=== PATIENT | male | born 1975 | race Hispanic/Latino ===

== ENCOUNTER 2017-09-12 09:13 | Emergency (ER) | payer MEDICAID ==
[2017-09-12] MEDS ORDERED: METHYLPREDNISOLONE SOD SUCC 125MG/2ML VIAL ONE (09:23)
[2017-09-12] MEDS ORDERED: IPRATROPIUM/ALBUTEROL SULFATE 3 ML SOLUTION IH ONE ×2 (09:26→09:34)
[2017-09-12] MEDS ORDERED: ALBUTEROL SULFATE 0.083% 2.5 MG/3 ML INH IH ONE (09:48)
== END 2017-09-12 10:25 | disposition home or self-care (01) ==
LOC: EDH 09:13
DX: J45.41 Moderate persistent asthma with (acute) exacerbation (principal); Z72.0 Tobacco use
CPT/HCPCS: 94640 ×3; 96374; 99285; J2930

== ENCOUNTER 2017-10-29 17:04 | Emergency (ER) | payer MEDICAID ==
[2017-10-29] MEDS ORDERED: IPRATROPIUM/ALBUTEROL SULFATE 3 ML SOLUTION IH ONE (18:10)
[2017-10-29] MEDS ORDERED: DEXAMETHASONE SOD PHOSPHATE 10MG/ML 1ML VIAL ONE (18:15)
== END 2017-10-29 18:27 | disposition home or self-care (01) ==
LOC: EDH 17:04
DX: J45.31 Mild persistent asthma with (acute) exacerbation (principal); Z72.0 Tobacco use
CPT/HCPCS: 94640; 96372; 99283; J1100

== ENCOUNTER 2018-04-14 19:33 | Emergency (ER) | payer MEDICAID ==
[2018-04-14] MEDS ORDERED: IPRATROPIUM/ALBUTEROL SULFATE 3 ML SOLUTION IH ONE (19:46)
[2018-04-14] MEDS ORDERED: METHYLPREDNISOLONE SOD SUCC 125MG/2ML VIAL ONE (19:54)
[2018-04-14] MEDS ORDERED: MAGNESIUM 2GM PREMIX 50ML 50 ML IV ONE (19:54)
[2018-04-14 20:03] LABS: BASOPHILS % (AUTO) 1.2 % (0.0-5.0); EOSINOPHILS % (AUTO) 20.6 % (0.0-8.0); HEMATOCRIT 49.3 % (42-54); MEAN CORPUSCULAR HEMOGLOBIN 32.5 pg (27.0-33.0); MEAN CORPUSCULAR HGB CONC 34.5 g/dL (32.0-36.0); MEAN CORPUSCULAR VOLUME 94.1 fL (79-99); MONOCYTES % (AUTO) 5.3 % (3.0-13.0); NEUTROPHILS % (AUTO) 37.9 % (40.0-77.0); PLATELET COUNT (AUTO) 342 K/uL (130-400); RED BLOOD CELL COUNT(AUTO) 5.24 MIL/uL (4.50-6.20); RED CELL DISTRIBUTION WIDTH 13.4 % (11.0-15.5); WHITE BLOOD COUNT (AUTO) 9.6 K/uL (4.8-10.8)
[2018-04-14 20:37] LABS: CREATININE 1.3 mg/dL (0.5-1.5); POTASSIUM 3.6 mmol/L (3.5-5.1)
[2018-04-14 20:42] LABS: ALBUMIN 3.6 g/dL (3.5-5.0); BILIRUBIN,TOTAL 0.2 mg/dL (0.2-1.0); TOTAL PROTEIN, SERUM 7.9 g/dL (6.0-8.3)
[2018-04-14 20:50] LABS: B-TYPE NATRIURETIC PEPTIDE 7 pg/mL (0-100)
[2018-04-14 21:38] LABS: BAND NEUTROPHILS % (MANUAL) 1 % (0-2); BASOPHILS % (MANUAL) 1 % (0-2); EOSINOPHILS % (MANUAL) 18 % (1-6); LYMPHOCYTES % (MANUAL) 34 % (22-44); MONOCYTES % (MANUAL) 2 % (2-9); REACTIVE LYMPHOCYTES 6 % (0-0); SEGMENTED NEUTROPHILS % 38 % (40-70)
[2018-04-14 21:39] LABS: MAN.DIFF COMMENT-IMPRESSION MANUAL DIFFERENTIAL
== END 2018-04-14 21:36 | disposition home or self-care (01) ==
LOC: EDH 19:33
DX: J45.901 Unspecified asthma with (acute) exacerbation (principal); Z98.890 Other specified postprocedural states; Z72.0 Tobacco use
CPT/HCPCS: 36415; 71045; 80053; 83880; 84484; 85025; 93005; 94640; 96365; 96366; 96375; 99291; J2930; J3475

== ENCOUNTER 2018-05-25 15:37 | Emergency (ER) | payer MEDICAID ==
[2018-05-25] MEDS ORDERED: IPRATROPIUM/ALBUTEROL SULFATE 3 ML SOLUTION IH ONE ×2 (15:42→16:14)
[2018-05-25] MEDS ORDERED: METHYLPREDNISOLONE SOD SUCC 125MG/2ML VIAL ONE (15:56)
[2018-05-25 16:03] LABS: BASOPHILS % (AUTO) 0.7 % (0.0-5.0); EOSINOPHILS % (AUTO) 14.2 % (0.0-8.0); HEMATOCRIT 48.3 % (42-54); LYMPHOCYTES % (AUTO) 15.8 % (21.0-51.0); MEAN CORPUSCULAR HEMOGLOBIN 31.5 pg (27.0-33.0); MEAN CORPUSCULAR HGB CONC 34.1 g/dL (32.0-36.0); MEAN CORPUSCULAR VOLUME 92.2 fL (79-99); MONOCYTES % (AUTO) 5.1 % (3.0-13.0); NEUTROPHILS % (AUTO) 64.2 % (40.0-77.0); PLATELET COUNT (AUTO) 277 K/uL (130-400); RED BLOOD CELL COUNT(AUTO) 5.24 MIL/uL (4.50-6.20); RED CELL DISTRIBUTION WIDTH 13.3 % (11.0-15.5); WHITE BLOOD COUNT (AUTO) 9.9 K/uL (4.8-10.8)
[2018-05-25 16:24] LABS: CREATININE 1.1 mg/dL (0.5-1.5); POTASSIUM 3.8 mmol/L (3.5-5.1)
[2018-05-25 16:29] LABS: ALBUMIN 3.5 g/dL (3.5-5.0); BILIRUBIN,TOTAL 0.7 mg/dL (0.2-1.0); TOTAL PROTEIN, SERUM 7.7 g/dL (6.0-8.3)
== END 2018-05-25 17:09 | disposition home or self-care (01) ==
LOC: EDH 15:37
DX: J45.901 Unspecified asthma with (acute) exacerbation (principal); Z79.899 Other long term (current) drug therapy; Z98.890 Other specified postprocedural states; Z72.0 Tobacco use
CPT/HCPCS: 36415; 71045; 80053; 85025; 94640 ×2; 96374; 99284; J2930

== ENCOUNTER 2018-06-05 11:26 | Emergency (ER) | payer MEDICAID ==
[2018-06-05] MEDS ORDERED: ACETAMINOPHEN-CODEINE 300/30MG TAB ONE (12:05)
== END 2018-06-05 12:10 | disposition home or self-care (01) ==
LOC: EDH 11:26
DX: L02.413 Cutaneous abscess of right upper limb (principal); J45.909 Unspecified asthma, uncomplicated; Z72.0 Tobacco use
CPT/HCPCS: 10060

== ENCOUNTER 2018-07-03 09:45 | Emergency (ER) | payer MEDICAID ==
[2018-07-03] MEDS ORDERED: METHYLPREDNISOLONE SOD SUCC 125MG/2ML VIAL ONE (10:30)
[2018-07-03] MEDS ORDERED: IPRATROPIUM/ALBUTEROL SULFATE 3 ML SOLUTION IH ONE (10:42)
== END 2018-07-03 11:36 | disposition home or self-care (01) ==
LOC: EDH 09:45
DX: J45.41 Moderate persistent asthma with (acute) exacerbation (principal); Z98.890 Other specified postprocedural states; Z72.0 Tobacco use
CPT/HCPCS: 71045; 87804 ×2; 94640; 96372; 99284; J2930

== ENCOUNTER 2018-07-28 07:36 | Emergency (ER) | payer MEDICAID ==
[~2018-07-28] VITALS: Ht 165.1 cm; Wt 81.7 kg
[2018-07-28] MEDS ORDERED: IPRATROPIUM/ALBUTEROL SULFATE 3 ML SOLUTION IH ONE ×2 (07:47→08:23)
[2018-07-28] MEDS ORDERED: METHYLPREDNISOLONE SOD SUCC 125MG/2ML VIAL ONE (07:55)
[2018-07-28] MEDS ORDERED: TERBUTALINE SULFATE VIAL 1MG/ML SQ SCH (08:00)
== END 2018-07-28 08:51 | disposition home or self-care (01) ==
LOC: EDH 07:36
DX: J45.901 Unspecified asthma with (acute) exacerbation (principal)
CPT/HCPCS: 71045; 94640 ×2; 96372 ×2; 99284; J2930; J3105

== ENCOUNTER 2018-09-04 19:32 | Emergency (ER) | payer MEDICAID ==
[2018-09-04 19:44] LABS: BASOPHILS % (AUTO) 1.2 % (0.0-5.0); EOSINOPHILS % (AUTO) 18.1 % (0.0-8.0); HEMATOCRIT 49.5 % (42-54); LYMPHOCYTES % (AUTO) 23.6 % (21.0-51.0); MEAN CORPUSCULAR HEMOGLOBIN 32.2 pg (27.0-33.0); MEAN CORPUSCULAR HGB CONC 34.2 g/dL (32.0-36.0); MEAN CORPUSCULAR VOLUME 94.1 fL (79-99); MONOCYTES % (AUTO) 6.3 % (3.0-13.0); NEUTROPHILS % (AUTO) 50.8 % (40.0-77.0); NUCLEATED RED BLOOD CELLS 0.2 % (0.0-0.19); PLATELET COUNT (AUTO) 279 K/uL (130-400); RED BLOOD CELL COUNT(AUTO) 5.26 MIL/uL (4.50-6.20); RED CELL DISTRIBUTION WIDTH 13.8 % (11.0-15.5); WHITE BLOOD COUNT (AUTO) 8.7 K/uL (4.8-10.8)
[2018-09-04] MEDS ORDERED: METHYLPREDNISOLONE SOD SUCC 125MG/2ML VIAL ONE (19:45)
[2018-09-04] MEDS ORDERED: IPRATROPIUM/ALBUTEROL SULFATE 3 ML SOLUTION IH ONE (19:49)
[2018-09-04 20:03] LABS: CREATININE 1.1 mg/dL (0.5-1.5); POTASSIUM 3.7 mmol/L (3.5-5.1)
[2018-09-04 20:05] LABS: B-TYPE NATRIURETIC PEPTIDE 14 pg/mL (0-100)
[2018-09-04 20:08] LABS: ALBUMIN 3.9 g/dL (3.5-5.0); BILIRUBIN,TOTAL 0.2 mg/dL (0.2-1.0); TOTAL PROTEIN, SERUM 7.9 g/dL (6.0-8.3)
[2018-09-04 20:23] LABS: APPEARANCE,URINE Clear (CLEAR); BILIRUBIN,URINE Negative (NEGATIVE); COLOR,URINE Yellow (YELLOW); GLUCOSE, URINE (UA) Negative (NEGATIVE); KETONES,URINE Negative (NEGATIVE); LEUKOCYTE ESTERASE ,URINE Negative (NEGATIVE); NITRATE,URINE Negative (NEGATIVE); OCCULT BLOOD,URINE Negative (NEGATIVE); PROTEIN,URINE Trace mg/dL (NEGATIVE)
[2018-09-04 20:30] LABS: AMPHET/METH SCREEN,URINE NEGATIVE (NEGATIVE); BARBITURATE SCREEN, URINE NEGATIVE (NEGATIVE); BENZODIAZEPINES SCREEN,URINE NEGATIVE (NEGATIVE); CANNABINOID SCREEN,URINE POSITIVE (NEGATIVE); COCAINE SCREEN,URINE POSITIVE (NEGATIVE); OPIATE SCREEN,URINE NEGATIVE (NEGATIVE); PHENCYCLIDINE SCREEN,URINE NEGATIVE (NEGATIVE)
[2018-09-04 21:00] LABS: BACTERIA,URINE Few /HPF (None Seen); CALCIUM OXALATE CRYSTALS,UR Rare /LPF (None Seen); MUCUS,URINE Rare LPF (None Seen); RBC,URINE 0-1 /HPF (0-1); SQUAMOUS EPITHELIAL CELL,UR Rare /HPF (0-2); WBC,URINE 0-1 /HPF (0-1)
== END 2018-09-04 20:41 | disposition home or self-care (01) ==
LOC: EDH 19:32
DX: J45.901 Unspecified asthma with (acute) exacerbation (principal); Z72.0 Tobacco use
CPT/HCPCS: 36415; 80053; 80305; 81001; 83880; 84484; 85025; 93005; 94640; 96374; 99284; J2930

== ENCOUNTER 2018-10-29 12:58 | Emergency (ER) | payer MEDICAID ==
[2018-10-29] MEDS ORDERED: IPRATROPIUM/ALBUTEROL SULFATE 3 ML SOLUTION IH ONE ×2 (13:26)
[2018-10-29] MEDS ORDERED: LORATADINE 10 MG TABLET ONE (13:29)
[2018-10-29] MEDS ORDERED: DEXAMETHASONE SOD PHOSPHATE 10MG/ML 1ML VIAL ONE (13:29)
[2018-10-29] MEDS ORDERED: ALBUTEROL SULFATE 0.083% 2.5 MG/3 ML INH IH ONE (13:50)
== END 2018-10-29 14:44 | disposition home or self-care (01) ==
LOC: EDH 12:58
DX: J45.40 Moderate persistent asthma, uncomplicated (principal); Z72.0 Tobacco use
CPT/HCPCS: 71045; 94640 ×3; 96374; 99285; J1100

== ENCOUNTER 2018-12-16 18:17 | Emergency (ER) | payer MEDICAID ==
[2018-12-16] MEDS ORDERED: DEXAMETHASONE SOD PHOSPHATE 10MG/ML 1ML VIAL ONE (18:31)
[2018-12-16] MEDS ORDERED: IPRATROPIUM/ALBUTEROL SULFATE 3 ML SOLUTION IH ONE (18:36)
== END 2018-12-16 19:13 | disposition home or self-care (01) ==
LOC: EDH 18:17
DX: J45.41 Moderate persistent asthma with (acute) exacerbation (principal); Z72.0 Tobacco use
CPT/HCPCS: 71045; 94640; 96372; 99283; J1100

== ENCOUNTER 2019-02-14 16:41 | Emergency (ER) | payer MEDICAID | END 2019-02-14 17:57 | disposition home or self-care (01) | LOC: EDH 16:41 | DX: J45.30 Mild persistent asthma, uncomplicated (principal); Z72.0 Tobacco use ==

== ENCOUNTER 2019-03-04 12:02 | Inpatient (IN) | payer MEDICAID ==
[~2019-03-04] VITALS: Ht 165.1 cm; Wt 81.6 kg
[2019-03-04 12:53] LABS: BASOPHILS % (AUTO) 0.5 % (0.0-5.0); HEMATOCRIT 41.9 % (42-54); MEAN CORPUSCULAR HEMOGLOBIN 32.6 pg (27.0-33.0); MEAN CORPUSCULAR HGB CONC 35.5 g/dL (32.0-36.0); MEAN CORPUSCULAR VOLUME 91.8 fL (79-99); MONOCYTES % (AUTO) 4.3 % (3.0-13.0); NEUTROPHILS % (AUTO) 83.2 % (40.0-77.0); PLATELET COUNT (AUTO) 113 K/uL (130-400); RED BLOOD CELL COUNT(AUTO) 4.56 MIL/uL (4.50-6.20); RED CELL DISTRIBUTION WIDTH 13.1 % (11.0-15.5); WHITE BLOOD COUNT (AUTO) 4.6 K/uL (4.8-10.8)
[2019-03-04] MEDS ORDERED: DiphenhydrAMINE HCL 50 MG/ML VIAL ONE (13:09)
[2019-03-04] MEDS ORDERED: CLINDAMYCIN 600 MG/D5% WATER 50 ML IV ONE ×2 (13:09→17:14)
[2019-03-04] MEDS ORDERED: KETOROLAC TROMETHAMINE 30MG/ML ONE (13:10)
[2019-03-04] MEDS ORDERED: SODIUM CHLORIDE 0.9% 1000ML 1,000 ML IV ONE ×3 (13:10→17:13)
[2019-03-04 13:13] LABS: CREATININE 1.3 mg/dL (0.5-1.5); POTASSIUM 3.3 mmol/L (3.5-5.1)
[2019-03-04 13:18] LABS: ALBUMIN 2.7 g/dL (3.5-5.0); BILIRUBIN,TOTAL 0.4 mg/dL (0.2-1.0); TOTAL PROTEIN, SERUM 6.6 g/dL (6.0-8.3)
[2019-03-04 13:19] LABS: INR 0.94 (0.85-1.15); PARTIAL THROMBOPLASTIN TIME 32.6 SEC (26.3-35.5); PROTHROMBIN TIME 9.9 SEC (9.6-11.6)
[2019-03-04] MEDS ORDERED: DOXYCYCLINE HYCLATE 100 MG TABLET PO ONE (14:36)
[2019-03-04] MEDS ORDERED: ACETAMINOPHEN EXTRA STRENGTH 500 MG TABLET ONE (14:37)
[2019-03-04 15:08] LABS: APPEARANCE,URINE Cloudy (CLEAR); BILIRUBIN,URINE Small (NEGATIVE); COLOR,URINE Dark Yellow (YELLOW); GLUCOSE, URINE (UA) Negative (NEGATIVE); KETONES,URINE Negative (NEGATIVE); LEUKOCYTE ESTERASE ,URINE Trace (NEGATIVE); NITRATE,URINE Negative (NEGATIVE); OCCULT BLOOD,URINE Negative (NEGATIVE); PH,URINE 5.5 (5.0-8.0); PROTEIN,URINE 300 mg/dL (NEGATIVE)
[2019-03-04 15:17] LABS: AMPHET/METH SCREEN,URINE NEGATIVE (NEGATIVE); BARBITURATE SCREEN, URINE NEGATIVE (NEGATIVE); BENZODIAZEPINES SCREEN,URINE NEGATIVE (NEGATIVE); CANNABINOID SCREEN,URINE POSITIVE (NEGATIVE); COCAINE SCREEN,URINE POSITIVE (NEGATIVE); OPIATE SCREEN,URINE NEGATIVE (NEGATIVE); PHENCYCLIDINE SCREEN,URINE NEGATIVE (NEGATIVE)
[2019-03-04] MEDS: SODIUM CHLORIDE 0.9% 1000ML 1,000 ML IV SCH (15:54)
[2019-03-04 15:56] LABS: AMORPHOUS SEDIMENT,UR Few /LPF (None Seen); BACTERIA,URINE Few /HPF (None Seen); HYALINE CASTS, URINE 0-1 /LPF (0-1 /LPF); MUCUS,URINE Rare LPF (None Seen); RBC,URINE 0-1 /HPF (0-1); SQUAMOUS EPITHELIAL CELL,UR Rare /HPF (0-2)
[2019-03-04] MEDS: CLINDAMYCIN 600 MG/D5% WATER 50 ML IV SCH ×2 (16:00→23:37)
[2019-03-04] MEDS ORDERED: ACETAMINOPHEN 325 MG TAB PO PRN (16:00)
[2019-03-04] MEDS: METHYLPREDNISOLONE SOD SUCC 125MG/2ML VIAL IV SCH ×2 (16:00→23:37)
[2019-03-04] MEDS: DOXYCYCLINE 100MG+NS 250ML 250 ML IV SCH (16:00)
[2019-03-04] MEDS ORDERED: GUAIFENESIN-DM 200/20 MG 10 ML PO PRN (16:00)
[2019-03-04] MEDS ORDERED: ONDANSETRON HCL 4 MG/2 ML VIAL IV PRN (16:00)
[2019-03-04] MEDS ORDERED: FAMOTIDINE/PF 20 MG/2 ML VIAL IV ONE (17:14)
[2019-03-04] MEDS ORDERED: METHYLPREDNISOLONE SOD SUCC 40MG/ML 1ML ONE (17:14)
[2019-03-04] MEDS ORDERED: IPRATROPIUM/ALBUTEROL SULFATE 3 ML SOLUTION IH ONE (18:22)
[2019-03-04] MEDS: IPRATROPIUM/ALBUTEROL SULFATE 3 ML SOLUTION IH SCH ×2 (18:29→23:19)
[2019-03-04] MEDS: FAMOTIDINE/PF 20 MG/2 ML VIAL IV SCH (21:00)
[2019-03-04] MEDS ORDERED: DOXYCYCLINE 100MG+NS 250ML 250 ML IV ONE (22:15)
[2019-03-04 22:25] VITALS: BP 109/66
[2019-03-04] MEDS ORDERED: ALBU2.5V2 IH (22:50)
[2019-03-05] MEDS ORDERED: SODIUM CHLORIDE 3% FOR INHALATION 4 ML/AMP VIAL.NEB IH ONE ×3 (00:58→11:48)
[2019-03-05 03:47] VITALS: BP 107/63
[2019-03-05] MEDS: SODIUM CHLORIDE 0.9% 1000ML 1,000 ML IV SCH ×3 (04:25→21:35)
[2019-03-05] MEDS: DOXYCYCLINE 100MG+NS 250ML 250 ML IV SCH ×2 (04:25→17:21)
[2019-03-05] MEDS: IPRATROPIUM/ALBUTEROL SULFATE 3 ML SOLUTION IH SCH ×4 (05:12→23:37)
[2019-03-05 07:08] LABS: HEMATOCRIT 39.3 % (42-54); MEAN CORPUSCULAR HEMOGLOBIN 32.5 pg (27.0-33.0); MEAN CORPUSCULAR HGB CONC 34.9 g/dL (32.0-36.0); MEAN CORPUSCULAR VOLUME 93.1 fL (79-99); PLATELET COUNT (AUTO) 98 K/uL (130-400); RED BLOOD CELL COUNT(AUTO) 4.22 MIL/uL (4.50-6.20); RED CELL DISTRIBUTION WIDTH 13.2 % (11.0-15.5); WHITE BLOOD COUNT (AUTO) 5.8 K/uL (4.8-10.8)
[2019-03-05 07:16] LABS: CREATININE 1.1 mg/dL (0.5-1.5); POTASSIUM 3.8 mmol/L (3.5-5.1)
[2019-03-05 08:00] VITALS: BP 125/87
[2019-03-05 08:23] LABS: BAND NEUTROPHILS % (MANUAL) 37 % (0-2); LYMPHOCYTES % (MANUAL) 13 % (22-44); MAN.DIFF COMMENT-IMPRESSION MANUAL DIFFERENTIAL; MONOCYTES % (MANUAL) 1 % (2-9); SEGMENTED NEUTROPHILS % 49 % (40-70)
[2019-03-05 08:24] LABS: PLATELET MORPHOLOGY COMMENT DECREASED
[2019-03-05] MEDS: ENOXAPARIN SODIUM 40 MG/0.4 ML SYRINGE SQ SCH (09:00)
[2019-03-05] MEDS ORDERED: FLU VACC QS2019-20 36MOS UP/PF 60 MCG/0.5 ML ML IM SCH (09:00)
[2019-03-05] MEDS: CLINDAMYCIN 600 MG/D5% WATER 50 ML IV SCH ×2 (10:06→17:21)
[2019-03-05] MEDS: FAMOTIDINE/PF 20 MG/2 ML VIAL IV SCH ×2 (10:07→21:34)
[2019-03-05] MEDS: METHYLPREDNISOLONE SOD SUCC 125MG/2ML VIAL IV SCH (10:08)
[2019-03-05] MEDS ORDERED: METHYLPREDNISOLONE SOD SUCC 40MG/ML 1ML IVP SCH (10:15)
[2019-03-05 12:08] VITALS: BP 134/89
[2019-03-05] MEDS: ACETAMINOPHEN 325 MG TAB PO PRN (12:19)
[2019-03-05 16:44] VITALS: BP 135/95
[2019-03-05] MEDS: METHYLPREDNISOLONE SOD SUCC 40MG/ML 1ML IVP SCH (17:22)
--- NOTE | 2019-03-05 18:01 | NUR ---
INITIAL MET W PT KNOWN TO , FROM ANOTHER ADMIT- WAS HERE PATIENTS PRIMARY CAREGIVER- PT IS AAOX3, INDP OF ADLS, LIVES ALONE, NO DME, HOME VERY CLOSE TO MOM AND BROTHER WHO WILL BE PICKING HIM UP; STATES WAS ADVISED HE HAS HEPATITIS, DOES NOT UNDERSTAND HOW PT ADMITS TO INCARCERATION, MULTIPLE TATTOOS, BUT STATES HE WAS NEVER SICK IN NURSING HOME. ADVISED HIM HEP CAN STAY DORMANT FOR A LONG TIME WITHOUT SYMPTOMS. PT HAS PRIMARY MD WILL FOLLOW UP , DCP IS HOME Addendum: 03/05/19 at 1805 by RYAN PRICE RN Amended: Links added.
[2019-03-05 20:00] VITALS: BP 130/84
[2019-03-06] VITALS: BP 114/64
[2019-03-06] MEDS: CLINDAMYCIN 600 MG/D5% WATER 50 ML IV SCH ×3 (00:14→15:29)
[2019-03-06] MEDS: METHYLPREDNISOLONE SOD SUCC 40MG/ML 1ML IVP SCH ×3 (00:15→22:46)
[2019-03-06] MEDS: ACETAMINOPHEN 325 MG TAB PO PRN (00:25)
[2019-03-06 04:00] VITALS: BP 120/62
[2019-03-06] MEDS: DOXYCYCLINE 100MG+NS 250ML 250 ML IV SCH ×2 (05:04→15:30)
[2019-03-06] MEDS: SODIUM CHLORIDE 0.9% 1000ML 1,000 ML IV SCH (05:04)
[2019-03-06 07:00] VITALS: BP 137/90
[2019-03-06] MEDS: IPRATROPIUM/ALBUTEROL SULFATE 3 ML SOLUTION IH SCH ×3 (07:07→18:31)
[2019-03-06] MEDS: ENOXAPARIN SODIUM 40 MG/0.4 ML SYRINGE SQ SCH ×2 (09:00→09:11)
[2019-03-06] MEDS ORDERED: FLU VACC QS2019-20 36MOS UP/PF 60 MCG/0.5 ML ML IM ONE (09:00)
[2019-03-06] MEDS: FAMOTIDINE/PF 20 MG/2 ML VIAL IV SCH ×2 (09:10→22:46)
[2019-03-06 11:00] VITALS: BP 124/85
[2019-03-06 16:00] VITALS: BP 127/81
[2019-03-06 20:00] VITALS: BP 136/87
[2019-03-07] VITALS: BP 131/70
[2019-03-07] MEDS: CLINDAMYCIN 600 MG/D5% WATER 50 ML IV SCH ×2 (00:14→08:50)
[2019-03-07] MEDS: IPRATROPIUM/ALBUTEROL SULFATE 3 ML SOLUTION IH SCH ×3 (00:17→11:28)
[2019-03-07 04:00] VITALS: BP 124/78
[2019-03-07] MEDS: DOXYCYCLINE 100MG+NS 250ML 250 ML IV SCH (04:32)
[2019-03-07 04:51] LABS: BASOPHILS % (AUTO) 0.2 % (0.0-5.0); HEMATOCRIT 34.9 % (42-54); LYMPHOCYTES % (AUTO) 14.3 % (21.0-51.0); MEAN CORPUSCULAR HEMOGLOBIN 32.8 pg (27.0-33.0); MEAN CORPUSCULAR HGB CONC 35.6 g/dL (32.0-36.0); MEAN CORPUSCULAR VOLUME 92.2 fL (79-99); MONOCYTES % (AUTO) 7.3 % (3.0-13.0); NEUTROPHILS % (AUTO) 78.2 % (40.0-77.0); PLATELET COUNT (AUTO) 149 K/uL (130-400); RED BLOOD CELL COUNT(AUTO) 3.78 MIL/uL (4.50-6.20); RED CELL DISTRIBUTION WIDTH 13.6 % (11.0-15.5); WHITE BLOOD COUNT (AUTO) 9.6 K/uL (4.8-10.8)
[2019-03-07 05:08] LABS: POTASSIUM 3.9 mmol/L (3.5-5.1)
[2019-03-07 08:00] VITALS: BP 124/76
[2019-03-07] MEDS: ENOXAPARIN SODIUM 40 MG/0.4 ML SYRINGE SQ SCH (08:50)
[2019-03-07] MEDS: METHYLPREDNISOLONE SOD SUCC 40MG/ML 1ML IVP SCH (08:50)
[2019-03-07] MEDS: FAMOTIDINE/PF 20 MG/2 ML VIAL IV SCH (08:50)
[2019-03-07] MEDS ORDERED: ALBU2.5V2 IH (11:57)
== END 2019-03-07 13:00 | disposition home or self-care (01) | DRG 720 ==
LOC: EDH 12:02 → EDHIP 12:03 → 3DH 21:43
PROVIDERS: ADMIT Internal Medicine; ATTEND Internal Medicine
DX: A41.9 Sepsis, unspecified organism (principal); E87.2 Acidosis; D69.6 Thrombocytopenia, unspecified; E44.1 Mild protein-calorie malnutrition; G30.9 Alzheimer's disease, unspecified; Z86.74 Personal history of sudden cardiac arrest; I95.9 Hypotension, unspecified; F02.80 Dementia in other diseases classified elsewhere, unspecified severity, without behavioral disturbance, psychotic disturbance, mood disturbance, and anxiety; I10 Essential (primary) hypertension; F14.10 Cocaine abuse, uncomplicated; F12.10 Cannabis abuse, uncomplicated; J32.4 Chronic pansinusitis; B17.9 Acute viral hepatitis, unspecified; J44.9 Chronic obstructive pulmonary disease, unspecified; Z82.49 Family history of ischemic heart disease and other diseases of the circulatory system; Z83.3 Family history of diabetes mellitus; Z82.3 Family history of stroke; Z68.29 Body mass index [BMI] 29.0-29.9, adult
CPT/HCPCS: 36415; 70486; 71045; 80048; 80053; 80305; 81001; 82550; 83605; 84145; 84484; 85025; 85610; 85730; 86757; 87040; 87088; 87804; 93005; 94640; 94664; G0008; G0378; J1200; J1650; J1885; J2405; J2920; J2930; J3490; J7030; Q2035

== ENCOUNTER 2019-04-16 20:16 | Emergency (ER) | payer MEDICAID ==
[~2019-04-16 20:16] MED LIST: ALBU2.5V2 IH
[2019-04-16] MEDS ORDERED: ACETAMINOPHEN EXTRA STRENGTH 500 MG TABLET ONE (20:46)
== END 2019-04-16 21:00 | disposition home or self-care (01) ==
LOC: EDH 20:16
DX: S46.212A Strain of muscle, fascia and tendon of other parts of biceps, left arm, initial encounter (principal); J45.909 Unspecified asthma, uncomplicated; Z72.0 Tobacco use; X50.0XXA Overexertion from strenuous movement or load, initial encounter; Y93.89 Activity, other specified; Y92.89 Other specified places as the place of occurrence of the external cause; Y99.8 Other external cause status

== ENCOUNTER 2019-05-08 14:43 | Emergency (ER) | payer MEDICAID ==
[2019-05-08] MEDS ORDERED: IPRATROPIUM/ALBUTEROL SULFATE 3 ML SOLUTION IH ONE ×2 (14:47→15:26)
[2019-05-08 15:00] LABS: BASOPHILS % (AUTO) 0.4 % (0.0-5.0); HEMATOCRIT 46.4 % (42-54); LYMPHOCYTES % (AUTO) 31.3 % (21.0-51.0); MEAN CORPUSCULAR HEMOGLOBIN 30.4 pg (27.0-33.0); MEAN CORPUSCULAR VOLUME 92.2 fL (79-99); PLATELET COUNT (AUTO) 331 K/uL (130-400); RED BLOOD CELL COUNT(AUTO) 5.03 MIL/uL (4.50-6.20); RED CELL DISTRIBUTION WIDTH 13.3 % (11.0-15.5); WHITE BLOOD COUNT (AUTO) 10.2 K/uL (4.8-10.8)
[2019-05-08 15:10] LABS: CREATININE 1.1 mg/dL (0.5-1.5); POTASSIUM 3.6 mmol/L (3.5-5.1)
--- NOTE | 2019-05-08 15:14 | NUR ---
NO ABG ORDERED WRONG INTERVENTION Addendum: 05/08/19 at 1515 by TAYLOR COPELAND RT RT Amended: Links added.
[2019-05-08 15:15] LABS: ALBUMIN 3.6 g/dL (3.5-5.0); BILIRUBIN,TOTAL 0.2 mg/dL (0.2-1.0); TOTAL PROTEIN, SERUM 7.6 g/dL (6.0-8.3)
[2019-05-08] MEDS ORDERED: METHYLPREDNISOLONE SOD SUCC 40MG/ML 1ML ONE (15:22)
== END 2019-05-08 16:10 | disposition home or self-care (01) ==
LOC: EDH 14:43
DX: J45.901 Unspecified asthma with (acute) exacerbation (principal); Z72.0 Tobacco use
CPT/HCPCS: 36415; 71045; 80053; 84484; 85025; 93005; 94640 ×2; 96374; 99285; J2920

== ENCOUNTER 2019-10-11 19:55 | Emergency (ER) | payer MEDICAID ==
[2019-10-11] MEDS ORDERED: DEXAMETHASONE SOD PHOSPHATE 10MG/ML 1ML VIAL ONE (20:19)
[2019-10-11] MEDS ORDERED: IPRATROPIUM/ALBUTEROL SULFATE 3 ML SOLUTION IH ONE (20:32)
== END 2019-10-11 21:34 | disposition home or self-care (01) ==
LOC: EDH 19:55
DX: J45.901 Unspecified asthma with (acute) exacerbation (principal)
CPT/HCPCS: 71045; 94640; 96372; 99283; J1100

== ENCOUNTER 2019-11-20 11:50 | Emergency (ER) | payer MEDICAID ==
[2019-11-20] MEDS ORDERED: KETOROLAC TROMETHAMINE 30MG/ML ONE (11:54)
[2019-11-20] MEDS ORDERED: ONDANSETRON HCL 4 MG/2 ML VIAL ONE (11:54)
[2019-11-20 12:16] LABS: BASOPHILS % (AUTO) 0.4 % (0.0-5.0); EOSINOPHILS % (AUTO) 10.5 % (0.0-8.0); LYMPHOCYTES % (AUTO) 23.3 % (21.0-51.0); MEAN CORPUSCULAR HEMOGLOBIN 31.7 pg (27.0-33.0); MEAN CORPUSCULAR HGB CONC 34.1 g/dL (32.0-36.0); MEAN CORPUSCULAR VOLUME 92.7 fL (79-99); NEUTROPHILS % (AUTO) 60.5 % (40.0-77.0); PLATELET COUNT (AUTO) 288 K/uL (130-400); RED BLOOD CELL COUNT(AUTO) 4.96 MIL/uL (4.50-6.20); RED CELL DISTRIBUTION WIDTH 12.5 % (11.0-15.5); WHITE BLOOD COUNT (AUTO) 9.5 K/uL (4.8-10.8)
[2019-11-20 12:27] LABS: CREATININE 1.2 mg/dL (0.5-1.5)
[2019-11-20] MEDS ORDERED: METHYLPREDNISOLONE SOD SUCC 125MG/2ML VIAL ONE (12:29)
[2019-11-20 12:31] LABS: BILIRUBIN,TOTAL 0.1 mg/dL (0.2-1.0)
[2019-11-20] MEDS ORDERED: ALBUTEROL SULFATE 0.083% 2.5 MG/3 ML INH IH ONE (12:42)
[2019-11-20 13:43] LABS: APPEARANCE,URINE Cloudy (CLEAR); BILIRUBIN,URINE Negative (NEGATIVE); COLOR,URINE Yellow (YELLOW); GLUCOSE, URINE (UA) Negative (NEGATIVE); KETONES,URINE Trace mg/dL (NEGATIVE); LEUKOCYTE ESTERASE ,URINE Negative (NEGATIVE); NITRATE,URINE Negative (NEGATIVE); OCCULT BLOOD,URINE Large (NEGATIVE); PROTEIN,URINE POS 1+ mg/dL (NEGATIVE)
[2019-11-20] MEDS ORDERED: IOHEXOL-350 75 ML VIAL IV ONE (13:45)
[2019-11-20 14:02] LABS: BACTERIA,URINE Moderate /HPF (None Seen); CALCIUM OXALATE CRYSTALS,UR Moderate /LPF (None Seen); SQUAMOUS EPITHELIAL CELL,UR None Seen /HPF (0-2)
== END 2019-11-20 16:23 | disposition home or self-care (01) ==
LOC: EDH 11:50
DX: N20.1 Calculus of ureter (principal); J45.909 Unspecified asthma, uncomplicated; Z20.828 Contact with and (suspected) exposure to other viral communicable diseases
CPT/HCPCS: 36415; 71045; 74178; 80053; 81001; 82150; 83690; 85025; 87088; 93005; 94640; 96374; 96375; 99285; J1885; J2405; J2930; Q9967; U0003

== ENCOUNTER 2020-01-05 19:01 | Emergency (ER) | payer MEDICAID ==
[2020-01-05] MEDS ORDERED: METHYLPREDNISOLONE SOD SUCC 125MG/2ML VIAL ONE (20:10)
== END 2020-01-05 20:30 | disposition home or self-care (01) ==
LOC: EDH 19:01
DX: J45.21 Mild intermittent asthma with (acute) exacerbation (principal); Z72.0 Tobacco use
CPT/HCPCS: 96372; 99283; J2930

== ENCOUNTER 2020-02-02 12:33 | Emergency (ER) | payer MEDICAID ==
[2020-02-02] MEDS ORDERED: METHYLPREDNISOLONE SOD SUCC 40MG/ML 1ML ONE (12:54)
[2020-02-02] MEDS ORDERED: IPRATROPIUM/ALBUTEROL SULFATE 3 ML SOLUTION IH ONE (12:58)
== END 2020-02-02 14:06 | disposition home or self-care (01) ==
LOC: EDH 12:33
DX: J45.901 Unspecified asthma with (acute) exacerbation (principal); Z72.0 Tobacco use
CPT/HCPCS: 71045; 94640; 96372; 99283; J2920

== ENCOUNTER 2020-03-07 22:23 | Emergency (ER) | payer MEDICAID ==
[2020-03-07] MEDS ORDERED: IPRATROPIUM/ALBUTEROL SULFATE 3 ML SOLUTION IH ONE (22:37)
[2020-03-07] MEDS ORDERED: METHYLPREDNISOLONE SOD SUCC 125MG/2ML VIAL ONE (22:40)
[2020-03-07] MEDS ORDERED: ALBUTEROL INHALER 90MCG/INH IH ONE (23:00)
== END 2020-03-07 23:02 | disposition home or self-care (01) ==
LOC: EDH 22:23
DX: J45.41 Moderate persistent asthma with (acute) exacerbation (principal); R03.0 Elevated blood-pressure reading, without diagnosis of hypertension; Z87.442 Personal history of urinary calculi
CPT/HCPCS: 94640; 96372; 99283; J2930

== ENCOUNTER 2020-04-25 19:19 | Emergency (ER) | payer MEDICAID ==
[2020-04-25] MEDS ORDERED: SODIUM CHLORIDE 0.9% 1000ML 1,000 ML IV ONE (19:20)
[2020-04-25 20:06] LABS: BASOPHILS % (AUTO) 0.6 % (0.0-5.0); EOSINOPHILS % (AUTO) 14.5 % (0.0-8.0); HEMATOCRIT 42.5 % (42-54); LYMPHOCYTES % (AUTO) 32.3 % (21.0-51.0); MEAN CORPUSCULAR HEMOGLOBIN 32.5 pg (27.0-33.0); MEAN CORPUSCULAR HGB CONC 35.5 g/dL (32.0-36.0); MEAN CORPUSCULAR VOLUME 91.4 fL (79-99); MONOCYTES % (AUTO) 6.7 % (3.0-13.0); NEUTROPHILS % (AUTO) 45.5 % (40.0-77.0); PLATELET COUNT (AUTO) 320 K/uL (130-400); RED BLOOD CELL COUNT(AUTO) 4.65 MIL/uL (4.50-6.20); RED CELL DISTRIBUTION WIDTH 12.6 % (11.0-15.5); WHITE BLOOD COUNT (AUTO) 11.1 K/uL (4.8-10.8)
[2020-04-25] MEDS ORDERED: ALBUTEROL INHALER 90MCG/INH IH ONE (20:07)
[2020-04-25] MEDS ORDERED: DEXAMETHASONE SOD PHOSPHATE 10MG/ML 1ML VIAL ONE (20:08)
[2020-04-25] MEDS ORDERED: AZITHROMYCIN 250 MG TABLET PO ONE (20:08)
[2020-04-25 20:17] LABS: CREATININE 1.4 mg/dL (0.5-1.5); POTASSIUM 4.1 mmol/L (3.5-5.1)
[2020-04-25 20:22] LABS: ALBUMIN 3.8 g/dL (3.5-5.0); BILIRUBIN,TOTAL 0.2 mg/dL (0.2-1.0); TOTAL PROTEIN, SERUM 7.6 g/dL (6.0-8.3)
[2020-04-25 20:24] LABS: RAPID GROUP A STREP NEGATIVE (NEGATIVE)
== END 2020-04-25 21:22 | disposition home or self-care (01) ==
LOC: EDH 19:19
DX: J45.901 Unspecified asthma with (acute) exacerbation (principal); Z20.828 Contact with and (suspected) exposure to other viral communicable diseases; Z72.0 Tobacco use; Z98.890 Other specified postprocedural states
CPT/HCPCS: 36415; 80053; 85025; 87426; 87804 ×2; 87880; 96361; 96374; 99283; J1100; J7030; U0003

== ENCOUNTER 2020-05-31 13:45 | Emergency (ER) | payer MEDICAID ==
[2020-05-31] MEDS ORDERED: ALBUTEROL INHALER 90MCG/INH IH ONE (14:05)
[2020-05-31] MEDS ORDERED: AZITHROMYCIN 250 MG TABLET PO ONE (14:06)
[2020-05-31] MEDS ORDERED: DEXAMETHASONE SOD PHOSPHATE 10MG/ML 1ML VIAL ONE (14:06)
[2020-05-31] MEDS ORDERED: CEFTRIAXONE SODIUM 1 GM ONE (14:06)
[2020-05-31] MEDS ORDERED: SODIUM CHLORIDE 0.9% 1000ML 1,000 ML IV ONE (14:50)
== END 2020-05-31 15:20 | disposition home or self-care (01) ==
LOC: EDH 13:45
DX: J45.21 Mild intermittent asthma with (acute) exacerbation (principal); Z72.0 Tobacco use; Z20.828 Contact with and (suspected) exposure to other viral communicable diseases
CPT/HCPCS: 71045; 87426; 99284; J0696; J1100; J7030; U0003

== ENCOUNTER 2020-06-24 13:01 | Emergency (ER) | payer MEDICAID ==
[2020-06-24] MEDS ORDERED: ALBUTEROL SULFATE 0.083% 2.5 MG/3 ML INH IH ONE ×3 (13:35→13:47)
== END 2020-06-24 14:54 | disposition left against medical advice (07) ==
LOC: EDH 13:01
DX: J45.21 Mild intermittent asthma with (acute) exacerbation (principal); Z72.0 Tobacco use
CPT/HCPCS: 94640

== ENCOUNTER 2024-08-30 10:15 | Emergency (ER) | payer MEDICAID ==
[~2024-08-30] VITALS: Ht 165.1 cm; Wt 104.3 kg
--- NOTE | 2024-08-30 10:30 | ERN ---
ED Note History of Present Illness Stated Complaint: ASTHMA Chief Complaint: Adult-Asthma Time Seen by MD: 10:16 Dictation: PATIENT IS A 49-YEAR-OLD MALE COMING IN WITH A HISTORY OF ASTHMA COMPLAINING OF SHORTNESS A BREATH AND WHEEZING FOR THE LAST 2-3 DAYS. NO FEVER NO CHILLS DRY COUGH ONLY. HE HAS NO CHEST PAIN NO BACK PAIN NO NAUSEA NO VOMITING. STATES HE HAS NO PRIMARY CARE DOCTOR AND USES EMERGENCY ROOMS FOR HIS HEALTH CARE. Allergies: Coded Allergies: No Known Drug Allergies (Verified Allergy, Unknown, 07/28/18) No Known Food Allergies (Unverified Allergy, Unknown, 03/04/19) Home Meds Active Scripts Albuterol Sulfate (Albuterol Sulfate) 2.5 Mg/3 Ml Vial.neb, 1 UDVIAL IH Q4HPRN PRN for SHORTNESS OF BREATH/WHEEZING for 30 Days, INH 0 Refills Prov:LISBETH JOHNSON 03/07/19 Past Medical History RN Note Reviewed/Agreed w/PFSH: Yes Review of System Dictation CONSTITUTIONAL: NEGATIVE EXCEPT FOR HPI HEAD/FACE: NEGATIVE EXCEPT FOR HPI EENT: NEGATIVE EXCEPT FOR HPI RESPIRATORY: NEGATIVE EXCEPT FOR HPI SOB/WHEEZING GASTROINTESTINAL/ABDOMINAL: NEGATIVE EXCEPT FOR HPI GENITOURINARY: NEGATIVE EXCEPT FOR HPI MUSCULOSKELETAL: NEGATIVE EXCEPT FOR HPI INTEGUMENTARY: NEGATIVE EXCEPT FOR HPI NEUROLOGICAL/PSYCH: NEGATIVE EXCEPT FOR HPI HEMATOLOGIC/LYMPHATIC: NEGATIVE EXCEPT FOR HPI ALL SYSTEMS NEGATIVE, EXCEPT NOTED ABOVE. 13 POINT REVIEW OF SYSTEMS ASSESSED AND ALL NEGATIVE EXCEPT FOR ABOVE. Initial Vital Sign VS Vital Signs Date Time Temp Pulse Resp B/P (MAP) Pulse Ox O2 Delivery O2 Flow Rate FiO2 08/30/24 10:28 97.9 86 24 132/90 94 Room Air 0 08/30/24 10:35 21 Physical Exam Dictation VITAL SIGNS REVIEWED GENERAL APPEARANCE: ALERT, ORIENTED X 3, MILD ACUTE DISTRESS, WELL DEVELOPED, NOURISHED. HEAD AND FACE: NON-TRAUMATIC. EYES: PERRL, PINK CONJUNCTIVAS, EYELID NO TRAUMA, ANTERIOR CHAMBER WITH ARCUS SENILIS. EARS: PINNAS INTACT AND NO SIGNS OF TRAUMA OR ERYTHEMA EAR CANALS CLEAR AND NO DISCHARGE TM NO ERYTHEMA NOSE: NO DISCHARGE, NO BLEEDING. OROPHARYNX: MOUTH NORMAL, TONGUE PINK, PHARYNX CLEAR,NO ERYTHEMA, TONSILS NO EXUDATES, NO ABSCESSES NOTED, MUCOUS MEMBRANE MOIST NECK: SUPPLE, NON-TENDER, NO THYROMEGALY, NO MASSES, NO JVD, NO BRUITS BREAST:DEFERRED CHEST:NO TENDERNESS, NO CREPITUS, NO PARADOXICAL MOVEMENT, NO RETRACTIONS LUNGS:CLEAR, WELL-VENTILATED, SYMMETRIC, MILD EXPIRATORY WHEEZING TO BILATERAL UPPER LOBES. NO RETRACTIONS OR TACHYPNEA HEART: REGULAR RATE, REGULAR RHYTHM, NO MURMUR, NO GALLOPS VASCULAR: NO PERIPHERAL EDEMA, ABDOMEN: SOFT, POSITIVE BOWEL SOUNDS, NONDISTENDED, NO GUARDING, NONTENDER, NO REBOUND, NO MASSES NO HEPATOMEGALY, NO SPLENOMEGALY, NO EVANGELISTA'S SIGN, NO HERNIAS. RECTAL: DEFERRED GENITAL: DEFERRED NEUROLOGICAL: NORMAL SPEECH, MOTOR FUNCTION INTACT, SENSORY FUNCTION INTACT MUSCULOSKELETAL: NECK NONTENDER, FULL RANGE OF MOTION, BACK NONTENDER, FULL RANGE OF MOTION, EXTREMITIES: NONTENDER, FULL RANGE OF MOTION SKIN: COLOR PINK, DRY, NO TURGOR, NO RASH, NO LACERATIONS, NO ABRASIONS, NO CONTUSIONS. LYMPHATIC: DEFERRED Results (Laboratory/Radiology) Labs Reviewed?: Yes ED Course ED Course Orders Procedure Category Date Status Time Dexamethasone 4mg/Ml PHA 08/30/24 Complete 1ml Vial (Dexametha 10:30 Albuterol 0.083% PHA 08/30/24 Complete 2.5mg/3ml (Proventil 10:30 Current Medications Medications (Trade) Dose Ordered Sig/Ana Route PRN Reason Start Time Stop Time Status Last Admin Dose Admin Albuterol Sulfate (Proventil 0.083% 2.5mg/3ml) 5 mg ONCE ONCE IH 08/30/24 10:30 08/30/24 10:31 DC 08/30/24 10:49 Dexamethasone Sodium Phosphate (dexaMETHasone 4MG/ML 1ML VIAL) 8 mg ONCE ONCE IM 08/30/24 10:30 08/30/24 10:31 DC 08/30/24 10:52 Vital Signs Date Time Temp Pulse Resp B/P (MAP) Pulse Ox O2 Delivery O2 Flow Rate FiO2 08/30/24 10:50 88 18 08/30/24 10:35 97.9 84 20 132/90 94 Room Air* 0 21 08/30/24 10:28 97.9 86 24 132/90 94 Room Air 0 1120/BILATERAL BREATH SOUNDS CLEAR NO WHEEZING AT THIS TIME. FEELS BETTER AFTER TREATMENT SATURATION 96 97% ROOM AIR Medical Decision Making MDM MEDICAL DECISION-MAKING BASED ON EMPIRIC TREATMENT FOR ASTHMA FLARE PATIENT GIVEN DECADRON AND ALBUTEROL INHALER BILATERAL BREATH SOUNDS CLEAR SATURATIONS 96 97% ON ROOM AIR GIVEN A LIST OF LOCAL DOCTORS FOLLOW UP WITH NEXT WEEK DX & DISP Disposition: Discharge Departure Impression: Primary Impression: Acute asthma flare Condition: Stable Scripts Prednisone (Prednisone) 20 Mg Tablet 1 TAB PO AD for 6 Days, #14 TAB 0 Refills TAKE 1 TAB BY MOUTH THREE TIMES PER DAY X3 DAYS, THEN TAKE 1 TAB BY MOUTH TWICE A DAY X2 DAYS, THEN TAKE 1 TAB BY MOUTH ONCE A DAY X1 DAY. TAKE WITH FOOD Prov: MICHAEL VERGARA NP 08/30/24 Albuterol Sulfate (Ventolin Hfa/Proventil Hfa/Proair Hfa) 90 Mcg Puff 2 PUFF IH Q4H PRN for SHORTNESS OF BREATH/WHEEZING for 30 Days, #1 INH 0 Refills Prov: MICHAEL VERGARA ADVERTISEMENT DISTRIBUTOR 08/30/24 Additional Instructions: FOLLOW-UP WITH PRIMARY CARE PROVIDER IN 1 TO 2 DAYS. TAKE MEDICATIONS DIRECTED HERE IN THE EMERGENCY ROOM. OKAY TO CONTINUE HOME MEDICATIONS UNLESS OTHERWISE DISCUSSED DURING YOUR VISIT IN THE EMERGENCY ROOM TODAY. RETURN TO [facility] EMERGENCY ROOM IF SYMPTOMS WORSEN OR IF THERE IS NO IMPROVEMENT. CALL 911 IF YOU NEED IMMEDIATE ASSISTANCE. TAKE TYLENOL OR MOTRIN METI-OJM-QTUPRML NEEDED AND IF NO CONTRAINDICATIONS ARE PRESENT. INCREASE ORAL HYDRATION. A WOUND CULTURE OR URINE CULTURE WAS ORDERED HERE IN THE EMERGENCY ROOM DEPARTMENT PLEASE FOLLOW-UP WITH PRIMARY CARE PROVIDER AND ADVISE THEM TO GET REPEAT PORTS FROM OUR FACILITY. IF YOU HAD ANY LOBO WRAP/SPLINTS THAT WERE APPLIED HERE, PLEASE DO NOT REMOVE THEM UNTIL YOU SEE YOUR PRIMARY CARE OR SPECIALTY. USE ALBUTEROL EVERY4 HOURS WHILE AWAKE FOR ONE DAY. TAKE PREDNISONE WITH FOOD DIRECTED UNTIL GONE. FOLLOW UP WITH ONE OF THE DOCTORS ON THE LIST PROVIDED YOU IN THE NEXT 3-4 DAYS. Referrals: KAN SHELTON MD (PCP) Time of Disposition: 11:20 I have reviewed the case, and I agree with, Diagnosis and Plan MICHAEL VERGARA NP Aug 30, 2024 10:30
--- NOTE | 2024-08-30 10:39 | NUR ---
PT IS NOW IN ER-17
[2024-08-30] MEDS: ALBUTEROL 0.083% 2.5 MG/3 ML INH IH ONE (10:49)
[2024-08-30 10:50] VITALS: PULSE 88; RESP 18
[2024-08-30] MEDS: dexaMETHasone SOD PHOSPHATE 4 MG/ML 1ML VIAL IM ONE (10:52)
[2024-08-30] MEDS ORDERED: PRED20TA3 PO (11:21)
[2024-08-30] MEDS ORDERED: ALBUHFA IH (11:21)
[2024-08-30 11:36] VITALS: BP 152/56; PULSE 80; RESP 18; TEMP 97.9; O2SAT 95
== END 2024-08-30 11:40 | disposition home or self-care (01) ==
LOC: EDH 10:15
DX: J45.909 Unspecified asthma, uncomplicated (principal)
CPT/HCPCS: 99283; 96372; 94640; J1100